=== PATIENT | male | born 1940 | race Caucasian/White ===

== ENCOUNTER 2017-11-15 13:42 | Outpatient (CLI) | payer MEDICARE, MEDICAID ==
[~2017-11-15] VITALS: Ht 160 cm; Wt 68.5 kg
[2017-11-15 14:00] VITALS: BP 80/41
[2017-11-15] MEDS ORDERED: PLAVIX75 MG ORAL (14:48)
[2017-11-15] MEDS ORDERED: ASPIRIN EC81 MG ORAL (14:48)
[2017-11-15] MEDS ORDERED: UNOBMED (14:48)
--- NOTE | 2017-11-15 15:25 | GI Initial Consult Note ---
History of Present Illness General Date patient seen: Nov 15, 2017 Time patient seen: 15:20 Referring physician: MICHAEL Reason for Consultation: RECTAL BLEED Present Illness HPI 77 year old male patient referred by Dr. Santa for rectal bleed and diarrhea x 2 days. States he has lost approximately 15 pounds in the past month. Denies any recent travels. Denies any changes in dietary habits. Last EGD/ colonoscopy was performed about 3-4 years ago, patient unsure of result. No signs of abuse or neglect. Patient is not fall risk. Home Meds Reported Medications Clopidogrel Bisulfate* (PLAVIX*) 75 Mg Tablet, 75 MG ORAL DAILY, TAB 11/15/17 Aspirin Ec* (ASPIRIN EC*) 81 Mg Tablet., 81 MG ORAL DAILY, TAB 11/15/17 Unable to Obtain Medications (UNABLE TO OBTAIN MEDS) 1 Ea Ea 11/15/17 Med list reviewed/reconciled: Yes Allergies: Coded Allergies: No Known Allergies (Unverified , 11/15/17) Patient History History Provided By: Patient PMH Narrative HTN Past Surgical History: Cardiac stent Pertinent Family History: none Social History: Denies: smoking, alcohol use, drug use, other Review of Systems All Other Systems: negative except mentioned in HPI Physical Exam Vital Signs Date Time Temp Pulse Resp B/P (MAP) Pulse Ox O2 Delivery O2 Flow Rate FiO2 11/15/17 14:00 98.4 50 16 80/41 95 98.4 Sp02 EP Interpretation: reviewed, normal General Appearance: well appearing, no apparent distress, alert Head: normocephalic EENT: PERRL/EOMI, normal ENT inspection Neck: supple Respiratory: normal breath sounds, no respiratory distress Cardiovascular: normal rate Gastrointestinal: normal inspection, non tender, soft, normal bowel sounds, non -distended Rectal: deferred Genitourinary: deferred Musculoskeletal: normal inspection, back normal Neurologic: normal inspection, alert, oriented x3, responsive Psychiatric: normal inspection, judgement/insight normal, memory normal Skin: normal inspection, normal color, no rash, warm/dry, palpation normal, well hydrated Lymphatic: normal inspection, no adenopathy GI: Plan Problems: (1) HTN (hypertension) (2) Heart disease (3) Rectal bleed Plan EGD/colonoscopy scheduled 11/17/17. - CLD & (Nulytely/Suprep/Movi-Prep) prep instructions given and acknowledged by patient. - NPO @ ME day prior procedure explained. - patient instructed to hold Plavix 3 days prior procedure Seen with Dr. Billy. Thank you for this patient referral. The patient was seen and examined at bedside and all new and available data was reviewed in the patients chart. I agree with the above findings, impression and plan. (Patient seen earlier today. Signature stamp does not reflect patient encounter time.). - MD Zita GregoryBanner Heart HospitalSurinder [employer] M[employer] OPERATOR Nov 15, 2017 15:25
== END 2017-11-15 14:15 | disposition home or self-care (01) ==
LOC: PAN 13:42
DX: K62.5 Hemorrhage of anus and rectum (principal); R19.7 Diarrhea, unspecified; Z79.82 Long term (current) use of aspirin; I11.9 Hypertensive heart disease without heart failure; Z95.5 Presence of coronary angioplasty implant and graft
CPT/HCPCS: 99212

== ENCOUNTER 2017-11-17 08:17 | Day surgery (SDC) | payer MEDICARE, MEDICAID ==
[~2017-11-17] VITALS: Ht 160 cm; Wt 68.9 kg
[2017-11-17] VITALS (8 sets, daily range): BP systolic 124–154; BP diastolic 64–80
--- NOTE | 2017-11-17 06:58 | Anethesia Preoperative Eval ---
Anesthesia Pre-op PMH/ROS General Date of Evaluation: Nov 17, 2017 Time of Evaluation: 06:56 Anesthesiologist: rafael ASA Score: ASA 4 Mallampati Score Class I : Soft palate, uvula, fauces, pillars visible Class II: Soft palate, uvula, fauces visible Class III: Soft palate, base of uvula visible Class IV: Only hard plate visible Mallampati Classification: Class II Surgeon: tisha Diagnosis: rectal bleed and diarrhea Surgical Procedure: egd/colonoscopy Anesthesia History: none Social History: smoking - nonsmoker Family History: no anesthesia problems Allergies: Coded Allergies: No Known Allergies (Unverified , 11/15/17) Medications: see eMAR Past Medical History Cardiovascular: Reports: HTN, other - chf, coronary stent Anesthesia Pre-op Phys. Exam Physician Exam Constitutional: NAD Neurologic: CN 2-12 intact Cardiovascular: RRR Respiratory: CTA Gastrointestinal: S/NT/ND Airway Exam Mallampati Score: Class II MO: limited Neck: supple TMD: 2fb ROM: limited Teeth: intact Anesthesia Pre-op A/P Studies Pre-op Studies: EKG - sinus bradycardia, Risk Assessment & Plan Assessment: asa4 Plan: mac Status Change Before Surgery: No Pre-Antibiotics Drug: Tosha Solares MD Nov 17, 2017 06:58
[~2017-11-17 08:17] MED LIST: ASPIRIN EC81 MG ORAL; Atropine Inj 1mg/10ml Syr IV PRN; DiphenhydrAMINE 50mg/ml Inj IVP PRN; Midazolam 2mg/2ml Inj IVP PRN; PLAVIX75 MG ORAL; UNOBMED; fentaNYL 100 mcg/2 mL IV PRN
--- NOTE | 2017-11-17 09:36 | Short Stay Surgery H&P ---
History of Present Illness History of Present Illness Chief Complaint see recent consult note HPI Kayla David is a 77 year old male who was admitted on for Rectal Bleed & Diarrhea Patient History Allergies: Coded Allergies: No Known Allergies (Unverified , 11/15/17) Medication History Scheduled Aspirin Ec* (Aspirin Ec*), 81 MG ORAL DAILY, (Reported) Clopidogrel Bisulfate* (Plavix*), 75 MG ORAL DAILY, (Reported) Physical Exam Vital Signs Last Vital Signs Date Time Temp Pulse Resp B/P (MAP) Pulse Ox O2 Delivery O2 Flow Rate FiO2 11/17/17 09:03 96.3 50 18 134/67 97 Room Air 96.3 Labs Laboratory Tests Test 11/17/17 09:30 White Blood Count Pending Red Blood Count Pending Hemoglobin Pending Hematocrit Pending Mean Corpuscular Volume Pending Mean Corpuscular Hemoglobin Pending Mean Corpuscular Hemoglobin Concent Pending Red Cell Distribution Width Pending Platelet Count Pending Mean Platelet Volume Pending Neutrophils (%) (Auto) Pending Lymphocytes (%) (Auto) Pending Monocytes (%) (Auto) Pending Eosinophils (%) (Auto) Pending Basophils (%) (Auto) Pending Sodium Level Pending Potassium Level Pending Chloride Level Pending Carbon Dioxide Level Pending Blood Urea Nitrogen Pending Creatinine Pending Estimat Glomerular Filtration Rate Pending Glucose Level Pending Calcium Level Pending Total Bilirubin Pending Aspartate Amino Transf (AST/SGOT) Pending Alanine Aminotransferase (ALT/SGPT) Pending Alkaline Phosphatase Pending Total Protein Pending Albumin Pending Globulin Pending Carcinoembryonic Antigen Pending Plan Attestation Are the patient's medical conditions optimized for surgery? Jeffry Billy MD Nov 17, 2017 09:36
--- NOTE | 2017-11-17 09:36 | Pre-Procedure Note/Attestation ---
Pre-Procedure Note/Attestation Complete Prior to Procedure Planned Procedure: not applicable Procedure Narrative: esophagogastroduodenoscopy and colonoscopy Indications for Procedure Pre-Operative Diagnosis: gib Attestation I attest that I discussed the nature of the procedure; its benefits; risks and complications; and alternatives (and the risks and benefits of such alternatives ), prior to the procedure, with the patient (or the patient's legal inbound sales representative). I attest that, if there was a reasonable possibility of needing a blood transfusion, the patient (or the patient's legal inbound sales representative) was given the [facility] standardized written summary, pursuant to the Christopher Shreyas Blood Safety Act ([place] Health and Safety Code # 1645, as amended). I attest that I re-evaluated the patient just prior to the surgery and that there has been no change in the patient's H&P, except as documented below: Jeffry Billy MD Nov 17, 2017 09:36
[2017-11-17 09:44] LABS: BASOPHILS % (AUTO) 0.2 % (0.0-2.0); EOSINOPHILS % (AUTO) 0.9 % (0.0-3.0); HEMATOCRIT 40.5 % (42.0-52.0); HEMOGLOBIN 14.3 G/DL (14.2-18.0); LYMPHOCYTES % (AUTO) 17.9 % (20.0-45.0); MEAN CORPUSCULAR VOLUME 87 FL (80-99); MONOCYTES % (AUTO) 7.8 % (1.0-10.0); NEUTROPHILS % (AUTO) 73.1 % (45.0-75.0); PLATELET COUNT 214 K/UL (150-450); RED BLOOD COUNT 4.66 M/UL (4.70-6.10); RED CELL DISTRIBUTION WIDTH 10.7 % (11.6-14.8); WHITE BLOOD COUNT 10.4 K/UL (4.8-10.8)
[2017-11-17 09:48] LABS: ANION GAP 9 mmol/L (5-15); BLOOD UREA NITROGEN 16 mg/dL (7-18); CALCIUM 8.6 MG/DL (8.5-10.1); CARBON DIOXIDE 27 MMOL/L (21-32); CHLORIDE 104 MMOL/L (98-107); SODIUM 139 MMOL/L (136-145)
[2017-11-17 09:53] LABS: ALANINE AMINOTRANSFERASE 30 U/L (12-78); ALBUMIN 3.2 G/DL (3.4-5.0); ALBUMIN/GLOBULIN RATIO 0.9 (1.0-2.7); ALKALINE PHOSPHATASE 76 U/L (46-116); ASPARTATE AMINO TRANSFERASE 12 U/L (15-37)
[2017-11-17] MEDS ORDERED: Propofol 200mg/20ml IV ONE (10:00)
[2017-11-17] MEDS ORDERED: Lidocaine 1% MPF 10mg/ml 5ml ONE (10:00)
[2017-11-17] MEDS ORDERED: Glycopyrrolate 0.2mg/ml 1ml Vial ONE (10:00)
--- NOTE | 2017-11-17 10:31 | Endoscopy Procedure Note ---
Endoscopy Procedure Note General Indication for Procedure: gib Procedures Performed: EGD, colonoscopy Operative Findings/Diagnosis: esophagitis, hemorrhoids, 6 polyps Specimen: yes Pt Tolerated Procedure Well: Yes Estimated Blood Loss: none Anesthesia Anesthesiologist: rafael Anesthesia: MAC Inserted Devices Implant(s) used?: No Quality Quality of Bowel Preparation: Good Did scope reach the cecum?: Yes Was there any complications?: No GI Core Measures 50 yrs or older w/o bx or poly: No 10yrs. F/U not recommended: Yes If not recommended, why?: Above average risk 10 yrs. F/U needed: Yes 18 years or older w/prev. colo: No Jeffry Billy MD Nov 17, 2017 10:31
--- NOTE | 2017-11-17 11:04 | Immediate Post-Op Evaluation ---
Immediate Post-Op Evalulation Immediate Post-Op Evalulation Procedure: egd/colonoscopy/bx Date of Evaluation: Nov 17, 2017 Time of Evaluation: 10:52 IV Fluids: 400ml 0.9ns Blood Products: none Estimated Blood Loss: neglgible Blood Pressure Systolic: 124 Blood Pressure Diastolic: 70 Pulse Rate: 61 Respiratory Rate: 18 O2 Sat by Pulse Oximetry: 99 Temperature (Fahrenheit): 97.3 Pain Score (1-10): 0 Nausea: No Vomiting: No Complications none Patient Status: awake, reacts, patent Hydration Status: adequate Drug: Tosha Solares MD Nov 17, 2017 11:04
--- NOTE | 2017-11-17 11:06 | 48 Hour Post Anesthesia Eval ---
Post Anesthesia Evaluation Procedure: egd/colonoscopy/bx Date of Evaluation: Nov 17, 2017 Time of Evaluation: 11:04 Blood Pressure Systolic: 139 0: 74 Pulse Rate: 64 Respiratory Rate: 18 Temperature (Fahrenheit): 97.3 O2 Sat by Pulse Oximetry: 99 Airway: patent Nausea: No Vomiting: No Pain Intensity: 0 Hydration Status: adequate Cardiopulmonary Status: stable Mental Status/LOC: patient returned to baseline Post-Anesthesia Complications: none Follow-up care needed: N/A Tosha Cates MD Nov 17, 2017 11:06
--- NOTE | 2017-11-17 16:46 | Procedure Note ---
DATE OF PROCEDURE: 11/17/2017 SURGEON: Jeffry Billy M.D. ANESTHESIOLOGIST: Dr. White. REFERRING PHYSICIAN: Dr. Santa. PROCEDURE: Upper endoscopy with biopsy and colonoscopy with snare polypectomy and biopsy. ANESTHESIA: Per Dr. White. INSTRUMENT: Olympus adult flexible upper endoscope and colonoscope. INDICATION: GI bleeding, screening colonoscopy evaluation, GERD. The procedure, risks, benefits, and possible consequences, including hemorrhage, aspiration, perforation and infection, and alternative treatments, were explained to the patient/legal guardian by Dr. Jeffry Billy and the patient/legal guardian understood and accepted these risks. DESCRIPTION OF PROCEDURE: After informed consent was obtained and the patient was adequately sedated, Olympus upper endoscope was advanced from the mouth to the second portion of the duodenum and retroflexion was performed in the stomach. The patient had evidence of a 5-cm hiatal hernia with associated distal esophagitis. Biopsy from distal esophagus was obtained. In the stomach, there was diffuse gastritis. Random biopsies from antrum and body was obtained to rule out H. pylori infection. At this time, the upper endoscope was retrieved. The patient was turned over for colonoscopy. First, rectal exam was performed, which was positive for external and internal hemorrhoids. Then, the scope was advanced from the rectum to the cecum and then subsequently terminal ileum. Quality of prep was good. The patient had a total of 6 polyps removed in this colonoscopy examination, two in the cecum, two in the ascending colon, one in the sigmoid, and one at the ileocecal valve. The most of the, I would say, out of six, four of these polyps were removed with snare polypectomy technique and two with biopsy. The largest one was actually in the sigmoid colon. These polyps were all less than 1 cm. The largest one would be about maybe 7 to 8 mm. The patient had also evidence of diverticulosis, mostly in the left colon. Retroflexion of rectum showed evidence of internal hemorrhoids. SUMMARY OF FINDINGS: 1. A 5-cm hiatal hernia. 2. Esophagitis. 3. Gastritis. 4. Six colonic polyps removed, see above for details. 5. Internal hemorrhoids. 6. Diverticulosis. RECOMMENDATIONS: 1. Follow up biopsy results. 2. PPI daily. 3. We recommend repeat colonoscopy in three years. I would like to thank Dr. Santa for this kind referral. Jeffry Billy M.D. DR: Anjali JOB#: [id number] CC: Dr. Santa
--- NOTE | 2017-11-19 13:18 | Cardiology Report ---
APPROVED REPORT EKG Measurement Heart [id number] MD [id number] Sinus bradycardia with 1st degree AV block Left ventricular hypertrophy with repolarization abnormality Septal infarct, age undetermined Abnormal ECG
== END 2017-11-17 12:40 | disposition home or self-care (01) ==
LOC: GAS 08:17
DX: Z12.11 Encounter for screening for malignant neoplasm of colon (principal); K21.9 Gastro-esophageal reflux disease without esophagitis; K29.50 Unspecified chronic gastritis without bleeding; D12.2 Benign neoplasm of ascending colon; D12.0 Benign neoplasm of cecum; D12.5 Benign neoplasm of sigmoid colon; R00.1 Bradycardia, unspecified; I44.0 Atrioventricular block, first degree; Z79.82 Long term (current) use of aspirin; I10 Essential (primary) hypertension; I50.9 Heart failure, unspecified; Z95.5 Presence of coronary angioplasty implant and graft
CPT/HCPCS: 36415; 43239; 45380; 80053; 82378; 85025; 93005; J2704; 94003; 94150

== ENCOUNTER 2017-11-22 15:08 | Outpatient (CLI) | payer MEDICARE, MEDICAID ==
[~2017-11-22 15:08] MED LIST changes: -Atropine Inj 1mg/10ml Syr IV PRN; -DiphenhydrAMINE 50mg/ml Inj IVP PRN; -Midazolam 2mg/2ml Inj IVP PRN; -fentaNYL 100 mcg/2 mL IV PRN
--- NOTE | 2017-11-22 15:30 | GI Progress Note ---
Assessment/Plan Problems: (1) Hiatal hernia ICD Codes: K44.9 - Diaphragmatic hernia without obstruction or gangrene SNOMED: 50229674 (2) Colonic polyp ICD Codes: K63.5 - Polyp of colon SNOMED: 73786386 (3) Gastritis ICD Codes: K29.70 - Gastritis, unspecified, without bleeding SNOMED: 1042082 (4) Rectal bleed ICD Codes: K62.5 - Hemorrhage of anus and rectum SNOMED: 37014584 Status: stable Status Narrative Seen with Dr. Billy. Assessment/Plan SUMMARY OF FINDINGS reviewed with patient: 1. A 5-cm hiatal hernia. 2. Esophagitis. 3. Gastritis. 4. Six colonic polyps removed, see above for details. 5. Internal hemorrhoids. 6. Diverticulosis. RECOMMENDATIONS: 1. Follow up biopsy results. >> negative for H. Pylori 2. Dexilant 60mg daily 3. We recommend repeat colonoscopy in three years. The patient was seen and examined at bedside and all new and available data was reviewed in the patients chart. I agree with the above findings, impression and plan. (Patient seen earlier today. Signature stamp does not reflect patient encounter time.). - Jeffry Billy MD Subjective Gastrointestinal/Abdominal: Reports: no symptoms Objective NAD, ambulatory General Appearance: WD/WN, no apparent distress, alert Cardiovascular: normal rate Respiratory/Chest: normal breath sounds, no respiratory distress Abdominal Exam: normal bowel sounds, non tender, soft Extremities: normal range of motion, non-tender Kristen Ahumada NP Nov 22, 2017 15:30
== END 2017-11-22 15:40 | disposition home or self-care (01) ==
LOC: PAN 15:08
DX: K44.9 Diaphragmatic hernia without obstruction or gangrene (principal); K63.5 Polyp of colon; K29.70 Gastritis, unspecified, without bleeding; K62.5 Hemorrhage of anus and rectum; K57.90 Diverticulosis of intestine, part unspecified, without perforation or abscess without bleeding; K64.8 Other hemorrhoids
CPT/HCPCS: 99212